=== PATIENT | female | born 1940 | race Caucasian/White ===

== ENCOUNTER → 2020-11-01 01:07 | Outpatient (CLI) | payer MEDICARE, SELFPAY ==
[2020-11-02 14:52] LABS: SARS-CoV-2 RNA PCR Negative
== END ==
PROVIDERS: PCP Family Medicine; Visit Provider Internal Medicine Gastroenterology
DX: Z01.812 Encounter for preprocedural laboratory examination (principal); Z20.822 Contact with and (suspected) exposure to COVID-19
CPT/HCPCS: C9803; U0003; U0005

== ENCOUNTER 2020-11-05 01:02 | Day surgery (SDC) | payer MEDICARE, SELFPAY ==
[2020-10-24 14:23] VITALS: BMI 21.3
[2020-11-05 06:57] VITALS: BP 139/73; PULSE 76; RESP 14; TEMP 36.3; O2SAT 100; BMI 21.3
[2020-11-05] MEDS: LACTATED RINGERS 1,000 ML 150 ML IV CONT (07:21)
--- NOTE | 2020-11-05 07:49 | PM.HPGS ---
History of Present Illness History of Present Illness Consent: Risks, benefits, and alternatives have been discussed and questions answered. Patient agrees to proceed with procedure. Chief complaint: neoplasm screening Narrative: Ana Way is a 79 year old female here for screening colonoscopy, last one 10 years ago. Review of Systems Constitutional: Constitutional: Denies headache(s) and Denies weakness Eyes: Eyes: Denies blurry vision ENT: Reports Normal hearing present, Denies headache(s) and Denies neck pain Cardiovascular: Cardiovascular: Denies chest pain and Denies dyspnea Respiratory: Respiratory: Denies dyspnea Gastrointestinal: Gastrointestinal: Reports no additional gastrointestinal complaints Genitourinary: Genitourinary: Denies dysuria Musculoskeletal: Musculoskeletal: Denies neck pain Integumentary/Breasts: Skin/Breast: Denies dry skin Neurologic: Reports Normal hearing present, Denies headache(s) and Denies weakness Psychiatric: Psychiatric: Denies anxiety Endocrine: Endocrine: Denies change in body appearance Hematologic/Lymphatic: Hematologic/Lymphatic: Denies easy bleeding Allergic/Immunologic: Allergic/Immunologic: Denies urticaria PMFSH Past Medical History Medical History (Updated 11/05/20 @ 07:52 by Junaid Don MD) Acid reflux Colon cancer screening Hypercholesteremia Hypertension Migraines Osteopenia Vaginal delivery x4 Surgical History Surgical History History of bladder surgery for cystocele History of hernia repair History of ovarian cystectomy Family History Family History Mother Hypertension Hypercholesteremia Father Hypercholesteremia Hypertension Social History Social History Smoking packs per day: 0.5 Smoking cigarettes per day: 10.0 Years smoked: 5 Smoking pack-years: 2.50 Smoking status: Former smoker Tobacco type: cigarettes Alcohol intake: current Drinks per week: 2 Substance use: never Substance use type: does not use Living arrangements: with family Spiritual care concerns: No Meds Home Medications and Allergies Home Medications Medication Instructions Recorded Confirmed Type conjugated estrogens 0.625 mg/gram 0.625 mg VAGINAL 2XW #30 g 05/29/20 11/05/20 Rx vaginal cream calcium carbonate-vitamin D3 600 1 tablet PO DAILY 08/26/20 11/05/20 History mg (1,500 mg)-800 unit tablet cranberry 500 mg capsule 500 mg PO DAILY 08/26/20 11/05/20 History ergocalciferol (vitamin D2) 1,250 1,250 mcg PO MONTHLY 08/26/20 11/05/20 History mcg (50,000 unit) capsule losartan 25 mg tablet 25 mg PO DAILY 08/26/20 11/05/20 History omeprazole 20 mg capsule,delayed 20 mg PO DAILY 08/26/20 11/05/20 History release simvastatin 10 mg tablet 10 mg PO DAILY 08/26/20 11/05/20 History metoprolol succinate 25 mg PO DAILY 10/24/20 11/05/20 History Allergies Allergy/AdvReac Type Severity Reaction Status Date / Time No Known Allergies Allergy Verified 11/05/20 06:54 Vital Signs Vital Signs - 24 hr 11/05/20 06:57 Temperature 97.3 F L Pulse Rate 76 Respiratory Rate 14 Blood Pressure 139/73 Pulse Oximetry 100 Exam Const: General: comfortable and no acute distress HENMT: General nose exam: Normal nares present Eyes: General: appearance normal, both eyes and all related structures Neck: Neck: no JVD Resp: Auscultation: clear to auscultation bilaterally Cardio: Rate: regular rate Rhythm: regular rhythm GI: Inspection: non-distended GI Palp: Yes Soft to palpation Skin: General skin exam: normal color Neuro: General: gait normal Speech: normal speech Extrem: General: normal to inspection Psych: Mental Status: mental status grossly normal Assessment and Plan Assessment and plan
[2020-11-05 08:15] VITALS: BP 98/60; PULSE 70; RESP 18; O2SAT 99
[2020-11-05 08:25] VITALS: BP 120/61; PULSE 62; RESP 20; O2SAT 99
[2020-11-05 08:35] VITALS: BP 136/72; PULSE 60; RESP 20; O2SAT 100
== END 2020-11-05 08:40 | disposition home or self-care (01) ==
PROVIDERS: PCP Family Medicine; Visit Provider Internal Medicine Gastroenterology
PROC: 0DJD8ZZ Inspection of Lower Intestinal Tract, Via Natural or Artificial Opening Endoscopic (ICD-10-PCS; CPT 45378; principal; 2020-11-05 08:00)
DX: Z12.11 Encounter for screening for malignant neoplasm of colon (principal); K63.5 Polyp of colon; K57.30 Diverticulosis of large intestine without perforation or abscess without bleeding; I10 Essential (primary) hypertension; E78.00 Pure hypercholesterolemia, unspecified; K21.9 Gastro-esophageal reflux disease without esophagitis; M85.80 Other specified disorders of bone density and structure, unspecified site; Z87.891 Personal history of nicotine dependence
CPT/HCPCS: 45385; 88305; C9803; J2001; J2704; J7120; U0003; U0005